=== PATIENT | female | born 1985 | race Caucasian/White ===

== ENCOUNTER 2018-01-12 02:57 | Observation (INO) ==
[2018-01-12] MEDS ORDERED: SALINE FLUSH 10ml SYRINGE IVF PRN (03:07)
--- OUTSIDE RECORDS SUMMARY | 2018-01-12 03:11 | External Medical Summary ---
:1985 Author Organization [employer] Care Team Providers Name Role Phone Shikha Summers Provider Role Unavailable Allergies No Known Allergies Problems Problem Type Condition Code Onset Dates Condition Status Problem Left foot pain M79.672 Active Medications No Known Medications Results No Known Results Summary Purpose [employer] Submission
--- NOTE | 2018-01-12 03:17 | Emergency Department Report ---
HPI - General Stated complaint: 5 wk bleeding Time Seen by Provider: 01/12/18 03:06 Source: patient, RN notes reviewed, old records reviewed, other (OB) Mode of arrival: ambulatory Limitations: no limitations - History of Present Illness HPI Narrative: 32yo @ 5wks gestation represents to the ER for evaluation of abdominal pain. Pt states that she developed vaginal bleeding 45min prior. Has wiped a few times, first had dark blood, then progressed to bright red blood. Bleeding is not enough to stain her underwear or require a pad. Pt called the OB extension course counselor (Dr. Coon). She is presenting to the ER for eval for bleeding. MD Complaint: vaginal bleeding Onset (ago): minute(s) (45) Consistency: intermittent Severity: mild Vaginal bleeding: light : yes Number of weeks : 5 OB History - Previous Pregnancies: other (ectopic) Last menstrual period: 12/08/17 care: followed by OB - Related Data : 3 Para: 1 Ab: 1 Home Medications Medication Instructions Recorded Confirmed ARIPiprazole [Abilify] 1 tab PO DAILY #0 tab 12/05/16 01/11/18 Propranolol HCl 20 mg PO DAILY #0 tab 12/05/16 01/11/18 Topiramate [Topamax] 100 mg PO DAILY #0 tab 12/05/16 01/11/18 Advil (Ibuprofen) 200 mg tablet 400 mg PO Q4H PRN tab 12/10/17 01/11/18 Protonix (Pantoprazole)40 mg 40 mg PO DAILY 12/10/17 01/11/18 tablet,delayed release Prozac (fluoxetine) 40 mg capsule 80 mg PO DAILY #0 cap 12/10/17 01/11/18 Buspirone [Buspar] 15 mg PO BID 01/11/18 01/11/18 Hydrocodone/APAP 5/325 [[place] 1 tab PO Q6H PRN 01/11/18 01/11/18 5/325] No115/Iron/Folic Acid 1 tab PO DAILY 01/11/18 01/11/18 [ 19 Chewable Tablet] Allergies Allergy/AdvReac Type Severity Reaction Status Date / Time Penicillins Allergy Intermediate HIVES Verified 01/11/18 20:28 Sulfa (Sulfonamide Allergy Intermediate HIVES Verified 01/11/18 20:28 Antibiotics) latex Allergy Mild RASH Verified 01/11/18 20:28 cefixime Allergy Unknown Verified 01/11/18 20:28 Review of Systems All systems: reviewed and negative except as stated Genitourinary: Reports: as per HPI, other (Vag bleeding). Denies: urgency, dysuria, frequency, hematuria, discharge, abnormal menses, dyspareunia, genital lesions Psychiatric: Reports: as per HPI, anxiety, depression. Denies: suicidal thoughts, homicidal thoughts, auditory hallucinations, visual hallucinations PFS Patient Stated Medical History Gastroesophageal Reflux Yes Disease Depression Yes Endometriosis Yes Post Menopausal No Now Yes Other Reproductive Yes: HX ECTOPIC Medical History Updates: Ectopic . Depression. GERD. Back pain. Migraine WHYTE - Social History Smoking status: Unknown if ever smoked Physical Exam - Limitations Limitations: no limitations - General General appearance: alert, in no apparent distress, obese (Morbid) - Normal Exams: Head:: Normocephalic without trauma Eyes:: Pupils are PERRLA w/ EOMI, No scleral icterus, irritation, or foreign bodies noted ENMT:: No facial trauma, nasal exudates, pharyngeal erythema, or exudates are noted Neck:: Full range of motion, without adenopathy Lymphatic:: No lymphadenopathy Musculoskeletal:: No tenderness, or deformity noted Integumentary:: No rashes, hives, or bruising noted Neurological:: Patient is alert, and oriented - Psychiatric Psychiatric exam: Present: agitated, anxious Course Vital Signs Temperature 98.4 F 01/12/18 03:09 Pulse Rate 116 H 01/12/18 03:09 Respiratory Rate 22 01/12/18 03:09 Blood Pressure 141/87 H 01/12/18 03:09 Pulse Oximetry 97 01/12/18 03:09 Temperature 98.4 F 01/12/18 03:09 Pulse Rate 116 H 01/12/18 03:09 Respiratory Rate 22 01/12/18 03:09 Blood Pressure 141/87 H 01/12/18 03:09 Pulse Oximetry 97 01/12/18 03:09 OB/Uterine Contractions - MDM Narrative Medical decision making narrative: Dr. Coon presented to the ER and evaluated pt. Will admit for overnight obs and further eval by PCM. - Differential Diagnosis Unlikely: premature labor (Threatened , partial , anxiety, hemorrhoids) - Medical Records Attestation: I reviewed the patient's medical records. - Lab Data Attestation: I reviewed the patient's lab results. Result diagrams: 01/12/18 03:35 Lab Results 01/12/1818 18 Range/Units 03:35 03:35 03:35 WBC 8.2 (4.5-11.0) T/MM3 RBC 4.23 (4.00-5.20) M/MM3 Hgb 11.9 L (12-16) GM/DL Hct 37.8 (36-46) % MCV 89.4 (80-100) UM3 MCH 28.1 (26-34) UUG MCHC 31.5 (31-37) GM/DL RDW Std Deviation 50.6 H (36.9-50.2) FL Plt Count 375 (130-400) T/MM3 MPV 9.3 L (9.4-12.4) UM3 Immature Gran % (Auto) 0.1 (0.0-0.5) % Neut % (Auto) 51.8 (33-66) % Lymph % (Auto) 38.3 (23-45) % [place] % (Auto) 6.9 (0-9.0) % Eos % (Auto) 2.7 (0-4) % Baso % (Auto) 0.2 (0-2) % Neut # (Auto) 4.3 (1.8-7.7) T/MM3 Lymph # (Auto) 3.2 (1-4.8) T/MM3 [place] # (Auto) 0.6 (0-0.8) T/MM3 Eos # (Auto) 0.2 (0-0.5) T/MM3 Baso # (Auto) 0.0 (0-0.2) T/MM3 Abs Immat Gran (auto) 0.01 (0.00-0.03) T/MM3 Beta HCG, Quant 2140.8 mIU/mL Crossmatch (AHG) See Detail Disposition Clinical Impression: Threatened Disposition: 02 To [place] [facility] [place]: Stable Time of Disposition: 04:32 - Seen By: physician
[2018-01-12 03:24] VITALS: O2SAT 97
[2018-01-12] MEDS ORDERED: LR 1,000 ML IV SCH (04:51)
[2018-01-12] MEDS ORDERED: HYDROCODONE/APAP 5mg/325mg TABLET PO PRN (04:51)
[2018-01-12 05:24] VITALS: BMI 59.3
--- NOTE | 2018-01-12 07:02 | History and Physical ---
ADMISSION NOTE A 32-year-old white female, G3, P1, at 5.0 weeks gestational age by LMP. The patient called me last night with sudden onset of abdominal pain approximately 5 :30 p.m. I sent her to the ER for evaluation. The patient was so emotional that she could barely talk on the phone. She is worried about an ectopic , she stated. The patient called me around 7:30 p.m and I sent her to ER. ER evaluated her and felt she had a nonsurgical abdomen. Hemoglobin was 11.2 and quantitative beta hCG was 2100. The ER doctor felt the pain had improved and she was dismissed to home with plans to keep her followup on with Dr. Montes. The patient called me back at 2:30 this morning so emotional she could barely talk. She reported that she had gone to the bathroom and was bleeding. She stated she was in pain from last night and the pain had never gotten better. I had her come back into the ER and I came in as well to evaluate her personally. When I went in the room immediately after the IV was placed and blood was drawn she was lying quietly on the bed. She did not have a surgical abdomen by my exam. There is no rebound. She reports that she had wiped three times while going to the bathroom and had some dark and bright blood. I repeated a hemoglobin. It was slightly improved at 11.9 and quantitative hCG was 2140. Given that she has had a couple of ER visits within the last 6 hours and given her severe anxiety and depression and her history of an ectopic , I'm going to go ahead and bring her in and watch her at least till daytime and we can reevaluate at that point in time. I think, given that her hemoglobin has improved, it is very unlikely that she has a ruptured ectopic . Also, at 5 weeks gestational age by reliable dates, it would be unlikely to have an ectopic rupture at this point in time. It is also too early with the 2140 quantitative hCG to see much by sonogram. Questions were answered to her and the father of the baby's satisfaction. A history from the office that has all her past medical and surgical history is printed off and attached to the chart. KASH
[2018-01-12 07:14] VITALS: BP 130/66; PULSE 91; RESP 16; TEMP 97.1
--- NOTE | 2018-01-12 08:20 | OB/GYN Progress Note ---
SHINGLE [facility]IMMER Postop Prog Note Free Text - Date Date: 01/12/18 - Progress Note Pt sleeping. After waking her, she reports pain is controlled with [place]. AVSS Reviewed lab findings, plan to follow with sono when quant HCG level is high enough. Discussed anxiety. She's started Buspar, but feels "it's never been this bad". Our office will contact Da Whelan today to arrange consultation regarding management of her sxs through her . Pt agrees with this plan. Q&A, reviewed precautions.
== END 2018-01-12 08:55 | disposition home or self-care (01) ==
LOC: SRG 02:57 → ED 02:57 → SRG 05:15
PROVIDERS: ADMIT Obstetrics & Gynecology; ATTEND Obstetrics & Gynecology